=== PATIENT | male | born 1950 | race Caucasian/White ===

== ENCOUNTER 2021-11-14 01:24 | Day surgery (SDC) | payer MEDICARE, OTHER, SELFPAY ==
[2021-10-31 14:54] VITALS: BMI 25.7
[2021-11-14 12:43] VITALS: BP 130/92; PULSE 61; RESP 20; TEMP 36.8; O2SAT 100
[2021-11-14] MEDS: LACTATED RINGERS 1,000 ML 150 ML IV CONT (12:53)
--- NOTE | 2021-11-14 13:03 | P.PNAN_ITS ---
Anes - Initial Pre Proc Eval Procedure: Operation Date: 11/14/21 13:30 Proposed Procedures p Screening Colonoscopy - Og Grider MD Date/Time: 11/14/21 13:03 Surgeon: Og Grider MD Pre Op Diagnosis: neoplasm screening Patient Data Age: 70 Gender: M Height: 1.83 m Weight: 84.7 kg Last Vital Signs Temp 98.2 F 11/14/21 12:43 Pulse 61 11/14/21 12:43 Resp 20 11/14/21 12:43 BP 130/92 H 11/14/21 12:43 Pulse Ox 100 11/14/21 12:43 Allergies Allergy/AdvReac Type Severity Reaction Status Date / Time erythromycin base Allergy Intermediate Rash Verified 11/14/21 12:37 Penicillins Allergy Intermediate Hives Verified 11/14/21 12:37 Home Medications Medication Instructions Recorded Confirmed Type tamsulosin 0.4 mg capsule 1 cap PO HS 09/12/21 10/31/21 History losartan 25 mg PO HS 10/31/21 10/31/21 History psyllium husk [Metamucil] 0.52 g PO DAILY 10/31/21 10/31/21 History Patient hx anesthesia problems: none Family hx anesthesia problems: none Results Review: All pre-operative results and documents have been reviewed as part of the pre-operative evaluation. [facility] Past Medical History Medical History BPH (benign prostatic hyperplasia) Hypertension Family History Family History Father Family history of chronic obstructive pulmonary disease Family history of emphysema Family history of type 2 diabetes mellitus Family history of heart disease in male family member before age 55 Family history of lung cancer Mother Family history of thyroid disease Other Cerebrovascular accident Social History Social History Smoking status: Never smoker Second hand tobacco smoke exposure: No Alcohol intake: current Drinks per week: 5 Alcohol use details: DRINKS Substance use: never Substance use type: does not use Living arrangements: with family Spiritual care concerns: No Anes - Eval Final PreProcedure Day of Procedure 11/14/21 13:03 Patient weight: normal Heart: regular rate and rhythm Lungs: clear to auscultation Airway: Mallampati scale class II Neurological: alert and oriented Last oral intake: >/= 8 hours ASA classification: II Emergent: no Anesthetic plan: proceed Anesthesia type and monitoring: general GIVS and standard monitoring Results Review: All pre-operative results and documents have been reviewed as part of the pre-operative evaluation. Informed Consent: The patient's anesthetic plan and its attendant risks and benefits were discussed with the patient/family/POA. Questions were solicited and answers provided to the satisfaction of the patient/family/POA.
--- NOTE | 2021-11-14 13:09 | PM.HPGS ---
History of Present Illness History of Present Illness Consent: Risks, benefits, and alternatives have been discussed and questions answered. Patient agrees to proceed with procedure. Chief complaint: neoplasm screening Narrative: Jeff Westbrook is a 70 year old male with last colonoscopy more than 12 years ago Review of Systems Constitutional: Constitutional: Denies headache(s) and Denies weakness Eyes: Eyes: Denies blurry vision ENT: Reports Normal hearing present, Denies headache(s) and Denies neck pain Cardiovascular: Cardiovascular: Denies chest pain and Denies dyspnea Respiratory: Respiratory: Denies dyspnea Gastrointestinal: Gastrointestinal: Reports no additional gastrointestinal complaints Genitourinary: Genitourinary: Denies dysuria Musculoskeletal: Musculoskeletal: Denies neck pain Integumentary/Breasts: Skin/Breast: Denies dry skin Neurologic: Reports Normal hearing present, Denies headache(s) and Denies weakness Psychiatric: Psychiatric: Denies anxiety Endocrine: Endocrine: Denies change in body appearance Hematologic/Lymphatic: Hematologic/Lymphatic: Denies easy bleeding Allergic/Immunologic: Allergic/Immunologic: Denies urticaria PMF Past Medical History Medical History (Updated 11/14/21 @ 13:10 by Og Grider MD) BPH (benign prostatic hyperplasia) Colon cancer screening Hypertension Family History Family History Father Family history of chronic obstructive pulmonary disease Family history of emphysema Family history of type 2 diabetes mellitus Family history of heart disease in male family member before age 55 Family history of lung cancer Mother Family history of thyroid disease Other Cerebrovascular accident Social History Social History Smoking status: Never smoker Second hand tobacco smoke exposure: No Alcohol intake: current Drinks per week: 5 Alcohol use details: DRINKS Substance use: never Substance use type: does not use Living arrangements: with family Spiritual care concerns: No Meds Home Medications and Allergies Home Medications Medication Instructions Recorded Confirmed Type tamsulosin 0.4 mg capsule 1 cap PO HS 09/12/21 10/31/21 History losartan 25 mg PO HS 10/31/21 10/31/21 History psyllium husk [Metamucil] 0.52 g PO DAILY 10/31/21 10/31/21 History Allergies Allergy/AdvReac Type Severity Reaction Status Date / Time erythromycin base Allergy Intermediate Rash Verified 11/14/21 12:37 Penicillins Allergy Intermediate Hives Verified 11/14/21 12:37 Vital Signs Vital Signs - 24 hr 11/14/21 12:43 Temperature 98.2 F Pulse Rate 61 Respiratory Rate 20 Blood Pressure 130/92 H Pulse Oximetry 100 Exam Const: General: comfortable and no acute distress HENMT: General nose exam: Normal nares present Eyes: General: appearance normal, both eyes and all related structures Neck: Neck: no JVD Resp: Auscultation: clear to auscultation bilaterally Cardio: Rate: regular rate Rhythm: regular rhythm GI: Inspection: non-distended GI Palp: Yes Soft to palpation Skin: General skin exam: normal color Neuro: General: gait normal Speech: normal speech Extrem: General: normal to inspection Psych: Mental Status: mental status grossly normal Assessment and Plan Assessment and plan (1) Colon cancer screening: Code(s): Z12.11 - Encounter for screening for malignant neoplasm of colon Status: Acute Assessment and Plan: colonoscopy
[2021-11-14 13:30] VITALS: BP 108/72; PULSE 61; RESP 13; O2SAT 98
[2021-11-14 13:40] VITALS: BP 112/76; PULSE 55; RESP 14; O2SAT 98
[2021-11-14 13:50] VITALS: BP 114/79; PULSE 53; RESP 16; O2SAT 99
--- NOTE | 2021-11-14 15:11 | SUR.PHASEII ---
PT'S delivery driver assistant was unable to get him until after her class 30 min away
== END 2021-11-14 15:08 | disposition home or self-care (01) ==
PROVIDERS: PCP Nurse Practitioner; Visit Provider Internal Medicine Gastroenterology
PROC: 0DJD8ZZ Inspection of Lower Intestinal Tract, Via Natural or Artificial Opening Endoscopic (ICD-10-PCS; CPT 45378; principal; 2021-11-14 13:30)
DX: Z12.11 Encounter for screening for malignant neoplasm of colon (principal); K64.8 Other hemorrhoids; N40.0 Benign prostatic hyperplasia without lower urinary tract symptoms; I10 Essential (primary) hypertension
CPT/HCPCS: G0121; J2704; J7120

== ENCOUNTER 2021-12-13 11:36 | Outpatient (CLI) | payer MEDICARE, OTHER, SELFPAY ==
[2021-12-13 12:50] LABS: Basophils Absolute Auto 0.1 K/mm3 (0.0-0.1); Basophils Percent Auto 0.5 % (0.2-1.2); Eosinophils Absolute Auto 0.5 K/mm3 (0-0.3); Hematocrit 45.2 % (42.0-52.0); Hemoglobin 14.9 g/dL (14.0-18.0); Immature Granulocyte Absolute 0.04 K/mm3 (0.00-0.031); Immature Granulocyte Percent A 0.3 % (0-0.5); Lymphocytes Absolute Auto 4.26 K/mm3 (0.9-3.2); Lymphocytes Percent Auto 35.7 % (18.3-44.2); Mean Corpuscular Hemoglobin 31.2 pg (26-34); Mean Corpuscular Volume 94.6 fl (80-100); Mean Platelet Volume 11.9 fl (7.4-10.4); Monocytes Absolute Auto 0.9 K/mm3 (0.1-0.6); Monocytes Percent Auto 7.1 % (2.6-8.5); Neutrophils Absolute Auto 6.3 K/mm3 (1.3-6.7); Neutrophils Percent Auto 52.4 % (45.5-73.1); Platelet Count Result 527 k/mm3 (150-375); Red Blood Count 4.78 M/mm3 (4.6-6.20); Red Cell Distribution Width 14.6 % (11.5-14.5); White Blood Count 11.9 K/mm3 (4.5-10.0)
[2021-12-13 14:40] LABS: Erythrocyte Sedimentation Rate 1 mm/hr (0-20)
[2021-12-13 16:44] LABS: Alanine Aminotransferase 27 U/L (6-50); Albumin Level 4.5 g/dL (3.5-5.1); Alkaline Phosphatase 56 U/L (38-126); Anion Gap 6 mmol/L (8-16); Aspartate Amino Transferase 46 U/L (17-59); Bilirubin,Total 0.4 mg/dL (0.2-1.3); Blood Urea Nitrogen 18 mg/dL (9-20); CRP < 0.5 mg/dL (<1.0); Calcium 9.2 mg/dL (8.4-10.2); Carbon Dioxide 25 mmol/L (22-30); Chloride 106 mmol/L (98-107); Estimated Glomerular Filt Rate > 60; Glucose 83 mg/dL (65-110); Potassium 4.2 mmol/L (3.4-5.0); Sodium 137 mmol/L (137-145)
[2021-12-15 15:53] LABS: BCR/abl P190 Not Detected; BCR/abl P210 Not Detected; BCR/abl Prior Result Not Given
[2021-12-15 15:54] LABS: BCR/abl P190 Chg YES; BCR/abl P210 Chg YES
[2021-12-17 14:20] LABS: Clinical Indication Not Given; Exon 14; Gene JAK2; JAK2 V617F Mutation Detected (Not Detected); Mutation Frequency 16.4; Mutation Type missense; Specimen Source Blood
== END 2021-12-13 11:37 | disposition home or self-care (01) ==
PROVIDERS: PCP Nurse Practitioner; Visit Provider Internal Medicine Hematology & Oncology
DX: D47.3 Essential (hemorrhagic) thrombocythemia (principal); D72.829 Elevated white blood cell count, unspecified
CPT/HCPCS: 36415; 80053; 81206; 81207; 81270; 85025; 85652; 86140

== ENCOUNTER 2022-01-09 21:52 | Emergency (ER) | payer MEDICARE, OTHER, SELFPAY ==
[2022-01-09 22:50] VITALS: BP 153/98; PULSE 61; RESP 18; TEMP 36.6; O2SAT 100
--- NOTE | 2022-01-10 01:01 | ED.WOUNDLAC ---
HPI - Wound/Laceration General Chief Complaint: Wound/Laceration Stated Complaint: lac to left index finger Time Seen by Provider: 01/10/22 00:51 History of Present Illness HPI narrative: 71-year-old male presents the emergency room for evaluation of left index finger laceration. Patient states he was trying to open up a plastic bottle with a kitchen knife when the knife slipped cutting his finger. Tetanus status is up-to-date. Related Data Home Medications Medication Instructions Recorded Confirmed tamsulosin 0.4 mg capsule 1 cap PO HS 09/12/21 10/31/21 psyllium husk 0.52 gram capsule 0.52 g PO DAILY 10/31/21 10/31/21 (Metamucil) Allergies Allergy/AdvReac Type Severity Reaction Status Date / Time erythromycin base Allergy Intermediate Rash Verified 01/09/22 22:53 Penicillins Allergy Intermediate Hives Verified 01/09/22 22:53 Review of Systems Review of Systems: CONSTITUTIONAL: Denies fever, chills, or sweats. EYES: Denies visual changes, redness, or discharge. ENT: Denies rhinorrhea, congestion, sore throat, or otalgia. CARDIOVASCULAR: Denies chest pain, palpitations, or edema. RESPIRATORY: Denies cough or dyspnea. GASTROINTESTINAL: Denies abdominal pain, nausea, vomiting, or diarrhea. GENITOURINARY: Denies dysuria or hematuria. SKIN: Reports laceration left finger MUSCULOSKELETAL: Denies back pain, joint pain, or myalgia. NEUROLOGIC: Denies headache, numbness, dizziness, or weakness. PSYCHIATRIC: Denies anxiety or depression. [facility] Past Medical History Medical History BPH (benign prostatic hyperplasia) Colon cancer screening Hypertension Family History Family History Father Family history of chronic obstructive pulmonary disease Family history of emphysema Family history of type 2 diabetes mellitus Family history of heart disease in male family member before age 55 Family history of lung cancer Mother Family history of thyroid disease Other Cerebrovascular accident Social History Social History Smoking status: Never smoker Second hand tobacco smoke exposure: No Alcohol intake: current Drinks per week: 5 Alcohol use details: DRINKS Substance use: never Substance use type: does not use Spiritual care concerns: No Exam Narrative: GENERAL: Well-appearing, well-nourished, no physical limitations, and in no acute distress. HEAD: Normocephalic, atraumatic. EYES: Conjunctivae normal, PERRLA and EOMI. CHEST: Clear to auscultation. No respiratory distress. No wheezes rales or rhonchi. No tenderness. HEART: Regular rate and rhythm. No murmur heard. Normal peripheral pulses. EXTREMITIES: Normal range of motion. No edema. No clubbing or cyanosis SKIN: Warm, dry, no rash. Left index finger: 2 cm linear laceration to the finger pad, neurovascular is intact distally NEURO: No focal deficits. Alert and oriented x3. MAEW. CN's II-XI intact bilaterally, normal gait PSYCH: Cooperative. Normal mood and affect. Course Vital Signs Vital signs: Vital Signs Temperature 36.6 C 01/09/22 22:50 Pulse Rate 61 01/09/22 22:50 Respiratory Rate 18 01/09/22 22:50 Blood Pressure 153/98 H 01/09/22 22:50 Pulse Oximetry 100 01/09/22 22:50 Temperature 36.6 C 01/09/22 22:50 Pulse Rate 61 01/09/22 22:50 Respiratory Rate 18 01/09/22 22:50 Blood Pressure 153/98 H 01/09/22 22:50 Pulse Oximetry 100 01/09/22 22:50 Procedures Laceration Laceration 1: Date: 01/10/22 Time: 01:42 Site: hand Side (If applicable): left Size (cm): 2 Description: linear Depth: simple, single layer Local Anesthetic: lidocaine 1% Amount of anesthesia used (mL): 3 Pre-repair: irrigated ====== Skin Level ====== Skin layer closed with: nylon Size
[2022-01-10 02:19] VITALS: BP 126/74; PULSE 67; RESP 16; O2SAT 98
== END 2022-01-10 02:20 | disposition home or self-care (01) ==
LOC: ANHED 01-10 01:44
PROVIDERS: Emergency Provider Nurse Practitioner Family; PCP Nurse Practitioner
DX: S61.211A Laceration without foreign body of left index finger without damage to nail, initial encounter (principal); W26.0XXA Contact with knife, initial encounter; N40.0 Benign prostatic hyperplasia without lower urinary tract symptoms; I10 Essential (primary) hypertension
CPT/HCPCS: 12001; 99284

== ENCOUNTER 2023-01-30 15:23 | Outpatient (CLI) | payer MEDICARE, SELFPAY ==
--- NOTE | ~2023-01-30 | US_ITS ---
EXAMINATION: US venous doppler LE RT DATE: 01/30/2023 15:57 INDICATION: M79.89 - Other specified soft tissue disorders . TECHNIQUE: Grayscale images without and with compression and Doppler images of the right lower extrem ity veins were obtained. COMPARISON: None FINDINGS: Noncompressible and partially compressible areas within the right gastrocnemius vein. The right commo n femoral vein, profunda (deep) femoral vein, femoral vein, popliteal vein, peroneal vein, posterior tibial veins, and greater saphenous vein are patent. IMPRESSION: 1. Acute/subacute deep venous thrombosis involving the right gastrocnemius vein. 2. Otherwise patent right lower extremity veins. Reviewed, dictated and finalized at location K. IMPRESSION: 1. Acute/subacute deep venous thrombosis involving the right gastrocnemius vei n. 2. Otherwise patent right lower extremity veins.
== END 2023-01-30 15:24 | disposition home or self-care (01) ==
PROVIDERS: PCP Family Medicine; Visit Provider Nurse Practitioner Family
DX: I82.461 Acute embolism and thrombosis of right calf muscular vein (principal)
CPT/HCPCS: 93971

== ENCOUNTER 2023-04-19 15:44 | Outpatient (CLI) | payer MEDICARE, SELFPAY ==
--- NOTE | ~2023-04-19 | MR_ITS ---
EXAMINATION: MR brain/brain stem wo/w con DATE: 04/19/2023 16:39 INDICATION: Transient cerebral ischemic attack, unspecified. TECHNIQUE: Magnetic resonance imaging (MRI) of the brain and brainstem was performed without and with 16 mL MultiHance intravenous contrast. COMPARISON: None. FINDINGS: There are a few areas of nonspecific increased T2-weighted signal intensity in the cerebral white matter, which is within normal limits for the patient's age. There is no intracranial hemorrha ge, acute infarction, or abnormal intracranial mass lesion. The ventricles are normal in size. There are likely changes of right ocular lens replacement surgery. The paranasal sinuses are clear. The mas toid air cells are normal. IMPRESSION: 1. Normal brain. Reviewed, dictated and finalized at location E. IMPRESSION: 1. Normal brain.
== END 2023-04-19 15:45 | disposition home or self-care (01) ==
PROVIDERS: PCP Family Medicine; Visit Provider Family Medicine
DX: G45.9 Transient cerebral ischemic attack, unspecified (principal); R26.81 Unsteadiness on feet
CPT/HCPCS: 70553; A9577

== ENCOUNTER 2023-04-30 08:36 | Outpatient (CLI) | payer MEDICARE, SELFPAY ==
--- NOTE | 2023-04-30 08:50 | ECHO_ITS ---
Patient Info Name: Jeff Westbrook Age: 72 years : 1950 Gender: Male Ht: 72 in Wt: 185 lbs BSA: 2.07 m2 HR: 73 bpm BP: 157 / 93 mmHg Technical Quality: Fair Exam Date: 04/30/2023 8:55 AM Exam Location: [facility] Patient Status: Outpatient Admit Date: 04/30/2023 Staff Ordering Physician: Manoj Perez MD Motion Picture Camera Operator: Whit Mcclain RDCS Attending Provider: Manoj Perez MD Exam Type: CA echo doppler color flow Study Info Indications - TIA Complete two-dimensional, color flow and Doppler transthoracic echocardiogram is performed. Summary 1. Complete two-dimensional, color flow and Doppler transthoracic echocardiogram is performed. 2. Left ventricular chamber dimension is normal. 3. Left ventricular systolic function is normal, estimated at 65-70%. 4. The left ventricular diastolic function is grade I diastolic dysfunction. 5. E/e' 8 is minimally elevated. 6. There is trace mitral valve regurgitation. 7. No pulmonary hypertension, estimated pulmonary arterial systolic pressure is 30 mmHg. Left Ventricle E/e' 8 is minimally elevated. Left ventricular chamber dimension is normal. Left ventricular systolic function is normal, estimated at 65-70%. The left ventricular diastolic function is grade I diastolic dysfunction. Right Ventricle Right ventricular chamber dimension is normal. Right ventricular systolic function is normal. Left Atria Left atrial chamber dimension is normal. Right Atria Right atrial chamber dimension is normal. Aortic Valve The aortic valve is trileaflet. There is no aortic valve stenosis. There is no aortic valve regurgitation. Pulmonic Valve There is no pulmonic regurgitation. Mitral Valve There is no mitral valve stenosis. There is trace mitral valve regurgitation. Tricuspid Valve There is no tricuspid valve regurgitation. No pulmonary hypertension, estimated pulmonary arterial systolic pressure is 30 mmHg. Pericardium/Pleural There is no pericardial effusion. Inferior Vena Cava Normal inferior vena cava with >50% collapse upon inspiration consistent with normal right atrial pressure, 5 mmHg. Aorta The aortic root size at the sinus of Valsalva is normal. Left Ventricular Outflow Tract Name Value Normal LVOT 2D LVOT Diameter 2.1 cm LVOT Doppler LVOT Peak Gradient 6 mmHg LVOT Mean Gradient 3 mmHg LVOT VTI 22 cm LVOT VTI/AV VTI Ratio 0.9 LVOT Stroke Volume 76 ml LVOT CO 15.0 l/min LVOT CI 7.2 l/min/m2 Pulmonic Valve Name Value Normal RVOT Doppler RVOT Peak Gradient 1 mmHg PV Doppler PV Peak Gradient 3 mmHg Mitral Valve
== END 2023-04-30 08:37 | disposition home or self-care (01) ==
PROVIDERS: PCP Family Medicine; Visit Provider Family Medicine
DX: G45.9 Transient cerebral ischemic attack, unspecified (principal); I10 Essential (primary) hypertension; I34.0 Nonrheumatic mitral (valve) insufficiency; R93.1 Abnormal findings on diagnostic imaging of heart and coronary circulation
CPT/HCPCS: 93306

== ENCOUNTER 2023-06-12 09:31 | Outpatient (CLI) | payer MEDICARE, SELFPAY | END 2023-06-12 09:32 | disposition home or self-care (01) | PROVIDERS: PCP Family Medicine; Visit Provider Surgery | DX: Z01.818 Encounter for other preprocedural examination (principal); K40.90 Unilateral inguinal hernia, without obstruction or gangrene, not specified as recurrent | CPT/HCPCS: 36415; 86850; 86900; 86901 ==

== ENCOUNTER 2023-06-12 10:43 | Outpatient (CLI) | payer MEDICARE, SELFPAY ==
--- NOTE | ~2023-06-12 | US_ITS ---
EXAMINATION:US venous doppler LE RT INDICATION:DVT. TECHNIQUE: Multiple grayscale, color flow and Doppler images of the right lower extremity deep venous systems were obtained and reviewed. COMPARISON:Ultrasound dated 01/30/2023 FINDINGS: The common femoral, superficial femoral and popliteal veins demonstrate normal respiratory variation, augmentation and compressibility. Color flow is also seen within the posterior tibial, pe roneal, greater saphenous and profunda veins. There is chronic thrombosis of the gastrocnemius vein. 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 Reviewed, dictated and finalized at location L. T IRONER SUPERVISOR
== END 2023-06-12 10:44 | disposition home or self-care (01) ==
PROVIDERS: PCP Family Medicine; Visit Provider Internal Medicine Hematology & Oncology
DX: I82.561 Chronic embolism and thrombosis of right calf muscular vein (principal)
CPT/HCPCS: 93971

== ENCOUNTER 2023-06-14 01:15 | Day surgery (SDC) | payer MEDICARE, SELFPAY ==
[2023-06-11 12:40] VITALS: BMI 25.1
--- NOTE | 2023-06-11 12:46 | PC.NURSE ---
Report to the Outpatient Waiting Room, entrance under the green pavilion located off [facility], at time _1130_ on date _[id number]_. Planned Procedure Time: _130pm_. Time changes happen often and if your time is changed the preop area will call you the afternoon before. - You and your visitor will be asked to self-screen and do not enter if you have any COVID symptoms. - A mask is optional within the hospital at this time. Patients may have clear liquids (water, carbonated beverages, clear teas, apple juice) until 3 hours prior to surgery with a maximum of 20 ounces. - No food from midnight until time of surgery Take the following medications with a SIP of water the morning of surgery: ___None DO NOT STOP ANY OF YOUR OTHER PRESCRIPTION MEDICATIONS PRIOR TO SURGERY ?EXCEPT THE FOLLOWING Medications to discontinue per physician Patient says office instructed him to stop Eliquis 3 days before surgery. Date to take last fhki___[id number] Please no make-up, nail chinese, hairspray, perfume, deodorant, or body powder the day of surgery. No jewelry (including any body piercings) or valuables the day of surgery, leave them at home. Please take a shower or bath the night before, or the morning of, surgery with an antibacterial soap. Wear comfortable, loose fitting clothing. - Jewelry must be removed prior to entering the operating room. Rings and piercings that are not removed may be cut off. - The hospital will not accept responsibility for valuables. - Please leave all valuables, including medications, at home the day of surgery. If you are going home after surgery, a licensed superintendent drivers must drive you home. - NO public transportation without another adult if you receive anesthesia. - We recommend that an adult stay with you for 24 hours following discharge. - We also recommend that you do not drive, make important decision, drink alcoholic beverages, or take any drugs that were not prescribed by your health care provider for at least 24 hours after your discharge time. Follow any additional instructions given to you from your surgeon. If you or anyone in your household have experienced Covid symptoms in the past week, please notify your surgeon or the nurse liaison at the phone number below for possible testing. Telephone instructions given to __Bob___and asked if any additional questions and then verbalized understanding. Patient advised to call surgeon office or pre surgery nurse liaison [phone] if any additional questions.
[2023-06-14] VITALS (9 sets, daily range): BP systolic 121–139; BP diastolic 70–80; PULSE 59–89; RESP 12–20; TEMP 36.6–37.2; O2SAT 98–100
--- NOTE | 2023-06-14 11:02 | WPDANESEPPF ---
Anes - Initial Pre Proc Eval Procedure: Operation Date: 06/14/23 12:00 Proposed Procedures p Robotic Assisted Laparoscopic Left Inguinal Hernia Repair with Mesh - Tanja Carpenter MD Date/Time: 06/14/23 11:02 Surgeon: Tanja Carpenter MD Pre Op Diagnosis: Left Inguinal Hernia Patient Data Age: 72 Gender: M Height: 1.83 m Weight: 84 kg Allergies Allergy/AdvReac Type Severity Reaction Status Date / Time erythromycin base Allergy Intermediate Rash Verified 06/14/23 10:52 Penicillins Allergy Intermediate Hives Verified 06/14/23 10:52 Home Medications Medication Instructions Recorded Confirmed Type tamsulosin 0.4 mg capsule 1 cap PO HS 09/12/21 06/14/23 History psyllium husk 0.52 gram capsule 0.52 g PO DAILY 10/31/21 06/14/23 History (Metamucil) finasteride 5 mg tablet 5 mg PO DAILY 09/13/22 06/14/23 History hydroxyurea 500 mg capsule 500 mg PO DAILY 09/13/22 06/14/23 History apixaban 5 mg tablet 5 mg PO BID #180 tabs 04/05/23 06/14/23 Rx aspirin 81 mg tablet,delayed 81 mg PO DAILY 04/05/23 06/14/23 History release (Adult Low Dose Aspirin) atorvastatin 10 mg tablet 10 mg PO QHS #90 tabs 04/05/23 06/14/23 Rx losartan 25 mg tablet 25 mg PO DAILY #90 tabs 04/09/23 06/14/23 Rx Patient hx anesthesia problems: none Family hx anesthesia problems: none Results Review: All pre-operative results and documents have been reviewed as part of the pre-operative evaluation. [facility] Past Medical History Medical History Abnormal red blood cells BPH (benign prostatic hyperplasia) High cholesterol History of gastric ulcer Hypertension Right leg DVT (~01/2023) TIA (transient ischemic attack) (~04/02/23) expressive aphasia Surgical History Surgical History H/O excision of mass benign tumor excised from left mandible History of cataract surgery History of colonoscopy History of rectal surgery Family History Family History Father Family history of chronic obstructive pulmonary disease Family history of emphysema Family history of type 2 diabetes mellitus Family history of heart disease in male family member before age 55 Family history of lung cancer Mother Family history of thyroid disease Other Cerebrovascular accident Social History Social History Smoking status: Never smoker Second hand tobacco smoke exposure: No Alcohol intake: current Drinks per week: 5 Alcohol use details: DRINKS Substance use: never Substance use type: does not use Lack of Transportation: No Lack of Food: Never True Current Housing: I Have Housing Concerned About Future Housing: No Difficulty Paying Gas/Electric Bills: No Difficulty Paying for Meds: No Currently Unemployed: No Education: Master's Degree or Higher Difficulty w/ Childcare or Family Care: No Living arrangements: with family Occupation/Education: retired Gender identity (if verbalized by the patient): Male Spiritual care concerns: No Anes - Eval Final PreProcedure Day of Procedure 06/14/23 11:02 Patient weight: normal Heart: regular rate and rhythm Lungs: clear to auscultation Airway: Mallampati scale class II Neurological: alert and oriented Last oral intake: >/= 8 hours ASA classification: III Emergent: no Anesthetic plan: proceed Anesthesia type and monitoring: general ETT and standard monitoring Results Review: All pre-operative results and documents have been reviewed as part of the pre-operative evaluation. Informed Consent: The patient's anesthetic plan and its attendant risks and benefits were discussed with the patient/family/POA. Questions were solicited and answers provided to the satisfaction of the patient/family/POA.
[2023-06-14] MEDS: ACETAMINOPHEN 500 MG TABLET 1000 MG PO (11:04)
[2023-06-14] MEDS: KETOROLAC 15 MG/ML VIAL (*BKC) IV PUSH (11:12)
--- NOTE | 2023-06-14 11:48 | PM.IMHP ---
H&P: HPI History of Present Illness Date/Time: 06/14/23 11:48 Chief Complaint: left inguinal hernia Narrative: Jeff is a 72 y/o male who presents to the office at the request of Dr. Perez for evaluation of a left inguinal hernia. Patient states about 2 months ago, he noticed a bulge in his left groin. He state the bulge is reducible and causes some sharp pain with certain movements. He denies any issues with urination or bowel habits. Review of Systems Review of Systems: All systems reviewed & are unremarkable except as noted in HPI and below PMFSH Past Medical History Medical History Abnormal red blood cells BPH (benign prostatic hyperplasia) High cholesterol History of gastric ulcer Hypertension Right leg DVT (~01/2023) TIA (transient ischemic attack) (~04/02/23) expressive aphasia Surgical History Surgical History H/O excision of mass benign tumor excised from left mandible History of cataract surgery History of colonoscopy History of rectal surgery Family History Family History Father Family history of chronic obstructive pulmonary disease Family history of emphysema Family history of type 2 diabetes mellitus Family history of heart disease in male family member before age 55 Family history of lung cancer Mother Family history of thyroid disease Other Cerebrovascular accident Social History Social History Smoking status: Never smoker Second hand tobacco smoke exposure: No Alcohol intake: current Drinks per week: 5 Alcohol use details: DRINKS Substance use: never Substance use type: does not use Lack of Transportation: No Lack of Food: Never True Current Housing: I Have Housing Concerned About Future Housing: No Difficulty Paying Gas/Electric Bills: No Difficulty Paying for Meds: No Currently Unemployed: No Education: Master's Degree or Higher Difficulty w/ Childcare or Family Care: No Living arrangements: with family Occupation/Education: retired Gender identity (if verbalized by the patient): Male Spiritual care concerns: No Meds Home Medications and Allergies Home Medications Medication Instructions Recorded Confirmed Type tamsulosin 0.4 mg capsule 1 cap PO HS 09/12/21 06/14/23 History psyllium husk 0.52 gram capsule 0.52 g PO DAILY 10/31/21 06/14/23 History (Metamucil) finasteride 5 mg tablet 5 mg PO DAILY 09/13/22 06/14/23 History hydroxyurea 500 mg capsule 500 mg PO DAILY 09/13/22 06/14/23 History apixaban 5 mg tablet 5 mg PO BID #180 tabs 04/05/23 06/14/23 Rx aspirin 81 mg tablet,delayed 81 mg PO DAILY 04/05/23 06/14/23 History release (Adult Low Dose Aspirin) atorvastatin 10 mg tablet 10 mg PO QHS #90 tabs 04/05/23 06/14/23 Rx losartan 25 mg tablet 25 mg PO DAILY #90 tabs 04/09/23 06/14/23 Rx Allergies Allergy/AdvReac Type Severity Reaction Status Date / Time erythromycin base Allergy Intermediate Rash Verified 06/14/23 10:52 Penicillins Allergy Intermediate Hives Verified 06/14/23 10:52 Exam Const: General: cooperative, comfortable and no acute distress Resp: Auscultation: clear to auscultation bilaterally Cardio: Rate: regular rate Rhythm: regular rhythm GI: Inspection: normal to inspection and visible herniation GI Palp: Yes abdominal tenderness, Yes Soft to palpation, Yes Tenderness to palpation present (GI), No Guarding due to palpation present (GI), No Rigid due to palpation and Yes Hernia present Assessment and Plan Assessment and plan (1) Left inguinal hernia: Code(s): K40.90 - Unilateral inguinal hernia, without obstruction or gangrene, not specified as recurrent Status: Acute Assessment and Plan: will setup for robotic assisted repair c mesh
--- NOTE | 2023-06-14 11:50 | WPDHPUPDATE1 ---
History and Physical Update Update Date/Time: 06/14/23 11:50 History and Physical has been reviewed, including an updated exam of the patient. There are NO changes in the patient's condition. Risks, benefits, and alternatives have been discussed and questions answered. Patient agrees to proceed with procedure.
[2023-06-14] MEDS: ceFAZolin 2 GM/D5W 50 ML 2 GM/50 ML BAG IVPB (11:58)
[2023-06-14] MEDS: BUPIVACAINE/EPINEPHRINE 0.5% 50 ML VIAL 30 ML INFILTRATE (12:37)
[2023-06-14] MEDS: LACTATED RINGERS 1,000 ML 30 ML IV CONT ×2 (13:55)
--- NOTE | 2023-06-14 14:19 | WPDURCON ---
Assessment and Plan Assessment and plan (1) Urinary retention: Code(s): R33.9 - Retention of urine, unspecified Status: Acute Assessment and Plan: Chronic urinary retention due to hypotonic bladder Urology Consult Note HPI Date Seen: 06/14/23 Requesting Physician: Tanja Carpenter MD Primary Care Provider: Amarilys Perez MD Consult Narrative Narrative: Jeff Westbrook is a 72 year old male well known to me with chronic, asymptomatic urinary retention/ incomplete bladder emptying. I was called in the operating room by Dr. Carpenter during the course of a robotic left inguinal herniorrhaphy were was noted that his bladder was distended and not draining. The catheter had been placed with scant urine output. Flexible cystoscopy was performed which revealed urethral trauma with a false passage. I was able to intubate the bladder (confirmed by direct visualization with robotic laparoscopy). The bladder was then drained with an 18 F Councill tip catheter. He had over 1000 cc of urine in his bladder undrained. Review of Systems Review of Systems: ROS unobtainable: Yes unobtainable due to mental status PMFSH Past Medical History Medical History Abnormal red blood cells BPH (benign prostatic hyperplasia) High cholesterol History of gastric ulcer Hypertension Right leg DVT (~01/2023) TIA (transient ischemic attack) (~04/02/23) expressive aphasia Surgical History Surgical History H/O excision of mass benign tumor excised from left mandible History of cataract surgery History of colonoscopy History of rectal surgery Family History Family History Father Family history of chronic obstructive pulmonary disease Family history of emphysema Family history of type 2 diabetes mellitus Family history of heart disease in male family member before age 55 Family history of lung cancer Mother Family history of thyroid disease Other Cerebrovascular accident Social History Social History Smoking status: Never smoker Second hand tobacco smoke exposure: No Alcohol intake: current Drinks per week: 5 Alcohol use details: DRINKS Substance use: never Substance use type: does not use Lack of Transportation: No Lack of Food: Never True Current Housing: I Have Housing Concerned About Future Housing: No Difficulty Paying Gas/Electric Bills: No Difficulty Paying for Meds: No Currently Unemployed: No Education: Master's Degree or Higher Difficulty w/ Childcare or Family Care: No Living arrangements: with family Occupation/Education: retired Gender identity (if verbalized by the patient): Male Spiritual care concerns: No Meds Home Medications and Allergies Home Medications Medication Instructions Recorded Confirmed Type tamsulosin 0.4 mg capsule 1 cap PO HS 09/12/21 06/14/23 History psyllium husk 0.52 gram capsule 0.52 g PO DAILY 10/31/21 06/14/23 History (Metamucil) finasteride 5 mg tablet 5 mg PO DAILY 09/13/22 06/14/23 History hydroxyurea 500 mg capsule 500 mg PO DAILY 09/13/22 06/14/23 History apixaban 5 mg tablet 5 mg PO BID #180 tabs 04/05/23 06/14/23 Rx aspirin 81 mg tablet,delayed 81 mg PO DAILY 04/05/23 06/14/23 History release (Adult Low Dose Aspirin) atorvastatin 10 mg tablet 10 mg PO QHS #90 tabs 04/05/23 06/14/23 Rx losartan 25 mg tablet 25 mg PO DAILY #90 tabs 04/09/23 06/14/23 Rx docusate sodium 100 mg capsule 100 mg PO BID #30 caps 06/14/23 Rx (Colace) hydrocodone 5 mg-acetaminophen 325 1 tablet PO Q6H PRN pain #30 tabs 06/14/23 Rx mg tablet Allergies Allergy/AdvReac Type Severity Reaction Status Date / Time erythromycin base Allergy Intermediate Rash Verified 06/14/23 10:52 Penicillins Allergy Intermedi
--- NOTE | 2023-06-14 14:21 | W.PM.PROC2 ---
Procedure Note - Detailed Date of Procedure 06/14/23 Pre-op Diagnosis Incarcerated Left Inguinal Hernia Post-op Diagnosis Same Procedure Performed robotic assisted repair of incarcerated left inguinal hernia with mesh Surgeon Tanja Carpenter MD Anesthesia General Indications 72-year-old male presenting to office with a large left incarcerated inguinal hernia Findings large indirect incarcerated left inguinal hernia with sigmoid colon, bladder, bladder massively distended requiring decompression by Urology Description of Procedure Patient was brought into the operating room and placed in the supine position. After adequate induction of general anesthesia, the patient was prepped and draped in normal sterile fashion. A time-out was then done to verify the patient's identity, as well as the procedure being performed. Prior to beginning, there was noted to be a large protruding mass in the right abdominal wall. I began by making a 8 mm incision in the supraumbilical region, a Veress needle was then placed into the peritoneal cavity. CO2 gas was then insufflated and after adequate pneumoperitoneum was achieved, the Veress needle was removed. I then placed an 8 mm trocar through this incision. I then placed the endoscope through this trocar site and under direct visualization placed 2 further 8 mm ports in the right and left mid abdomen. At this point, the large mass was noted to be very distended bladder. The [employer]inci robot was then docked to the 3 trocar sites. I then scrubbed out and went to the robotic console. Upon examining the pelvis, it was noted that the patient had a large left inguinal hernia incarcerated with sigmoid colon and bladder. Using very careful dissection with the cautery scissors I was able to reduce both the sigmoid colon and bladder out of this large hernia. The right side was examined and no hernia defect was noted. I began by making a preperitoneal flap approximately 6 cm superior to the defect. This flap was carried medially past the umbilical ligaments and laterally to the transversalis. It then began dissection of my medial compartment taking this down to the pubic tubercle. This was very difficult given the distended bladder. At this point, we tried to place a Dennis catheter for decompression. Despite attempts at decompression, the bladder continued to be very distended. Urology was then consulted intraoperatively for assistance. Dr. Parr proceeded with cystoscopy and catheter placement. Please see his full operative report for details of that procedure. I was then able to complete my medial dissection. I then began the lateral dissection taking this down to the transversalis fascia. Once these compartments were achieved, I began dissection around the cord structures. A large indirect hernia was noted at this point. Using careful dissection, was able to reduce indirect hernia sac off the cord structures. Once this was adequately done, I went ahead and placed a large piece of 3D Max mesh into the abdominal cavity. The mesh was carefully positioned, centering the center of the mesh over the indirect defect. Once this was done, was very satisfied with our repair. Using 3-0 Vicryl sutures, I tacked the mesh medially to William's ligament. Two lateral sutures were placed from the mesh to the transversalis fascia. I then closed the peritoneal flap with a running 2.0 V Lock suture. The abdomen was then desufflated, and all ports were removed. Once the abdomen was decompressed, it was noted that the right-sided mass was completely resolved. All incisions were then closed with the 4.0 monocryl suture. Dermabond was placed on each wound. The patient tolerated the procedure well, was extubated in the operating room postoperatively, and will now be transferred to the recovery room in stable condition. Please note incarceration of the bladder and sigmoid colon, as well as the massively distended bladder, this case was very di
--- NOTE | 2023-06-14 14:21 | W.PM.PROC2 ---
Procedure Note - Detailed Date of Procedure 06/14/23 Pre-op Diagnosis Left Inguinal Hernia, incomplete bladder emptying Post-op Diagnosis Same Procedure Performed Flexible cystoscopy with difficult catheterization Surgeon Sylvain Parr MD Anesthesia General Description of Procedure Patient to the operative suite undergoing robotic assisted left inguinal herniorrhaphy. Intraoperative findings are consistent with incomplete bladder emptying. At the bedside I did flexible cystoscopy. He had some trauma to the urethra with a false passage in the bulbous urethra. I was able to intubate identify the bladder and drain it with an 18 F catheter. Will plan to leave the catheter for 5 days. Estimated Blood Loss -10.0
== END 2023-06-14 16:10 | disposition home or self-care (01) ==
PROVIDERS: Urology; PCP Family Medicine; Visit Provider Surgery
PROC: 8E0Y4CZ Robotic Assisted Procedure of Lower Extremity, Percutaneous Endoscopic Approach (ICD-10-PCS; CPT 49650; principal; 2023-06-14 12:00)
PROC: (CPT 52310; 2023-06-14 12:00)
DX: K40.30 Unilateral inguinal hernia, with obstruction, without gangrene, not specified as recurrent (principal); R33.8 Other retention of urine; N36.5 Urethral false passage; I10 Essential (primary) hypertension; E78.00 Pure hypercholesterolemia, unspecified; N40.0 Benign prostatic hyperplasia without lower urinary tract symptoms; Z86.73 Personal history of transient ischemic attack (TIA), and cerebral infarction without residual deficits; Z86.718 Personal history of other venous thrombosis and embolism; Z79.01 Long term (current) use of anticoagulants; Z79.82 Long term (current) use of aspirin
CPT/HCPCS: 49650; 52000; S2900; 36415; 86850; 86900; 86901; 93971; A9270; C1769; C1781; J0690; J1100; J1170; J1885; J2405; J2704; J3010; J7120

== ENCOUNTER 2023-06-19 10:20 | Outpatient (CLI) | payer MEDICARE, SELFPAY ==
[2023-06-19 10:36] LABS: Basophils Absolute Auto 0.1 K/mm3 (0.0-0.1); Basophils Percent Auto 0.6 % (0.2-1.2); Eosinophils Absolute Auto 0.4 K/mm3 (0-0.3); Eosinophils Percent Auto 4.2 % (0-4.4); Hematocrit 44.7 % (42.0-52.0); Hemoglobin 14.7 g/dL (14.0-18.0); Immature Granulocyte Absolute 0.06 K/mm3 (0.00-0.031); Immature Granulocyte Percent A 0.6 % (0-0.5); Lymphocytes Absolute Auto 3.76 K/mm3 (0.9-3.2); Lymphocytes Percent Auto 35.9 % (18.3-44.2); Mean Corpuscular HGB Conc 32.9 g/dl (32-36); Mean Corpuscular Hemoglobin 33.2 pg (26-34); Mean Corpuscular Volume 100.9 fl (80-100); Mean Platelet Volume 11.1 fl (7.4-10.4); Monocytes Percent Auto 9.3 % (2.6-8.5); Neutrophils Absolute Auto 5.2 K/mm3 (1.3-6.7); Neutrophils Percent Auto 49.4 % (45.5-73.1); Platelet Count Result 413 k/mm3 (150-375); Red Blood Count 4.43 M/mm3 (4.6-6.20); Red Cell Distribution Width 13.6 % (11.5-14.5); White Blood Count 10.5 K/mm3 (4.5-10.0)
[2023-06-19 10:39] LABS: Blood Urea Nitrogen 16 mg/dL (8-26); Carbon Dioxide 29 mmol/L (22-30); Chloride 100 mmol/L (98-109); Estimated Glomerular Filt Rate 50; Glucose 100 mg/dL (70-105); Ionized Calcium (POC) 1.25 mmol/L (1.11-1.31); Potassium 4.9 mmol/L (3.5-4.9); Sodium 137 mmol/L (138-146)
== END 2023-06-19 10:21 | disposition home or self-care (01) ==
LOC: ANHLAB 10:22
PROVIDERS: PCP Family Medicine; Visit Provider Internal Medicine Hematology & Oncology
DX: D47.3 Essential (hemorrhagic) thrombocythemia (principal)
CPT/HCPCS: 36415; 80047; 85025

== ENCOUNTER 2023-09-10 08:51 | Outpatient (CLI) | payer MEDICARE, SELFPAY ==
--- NOTE | ~2023-09-10 | US_ITS ---
EXAMINATION: US venous doppler LE RT DATE: 09/10/2023 09:45 INDICATION: Acute deep vein thrombosis. TECHNIQUE: Grayscale ultrasound images without and with compression and Doppler ultrasound images of the right lower extremity veins were obtained. COMPARISON: Ultrasound 06/12/2023 FINDINGS: The visualized portions of right common femoral vein, profunda (deep) femoral vein, femoral vein, pop liteal vein, peroneal veins, posterior tibial veins, and greater saphenous vein outflow are patent. A gain seen is thrombus in right gastrocnemius vein. IMPRESSION: 1. 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 Reviewed, dictated and finalized at location A. MARKETING MANAGER
== END 2023-09-10 08:52 | disposition home or self-care (01) ==
PROVIDERS: PCP Family Medicine; Visit Provider Internal Medicine Hematology & Oncology
DX: I82.561 Chronic embolism and thrombosis of right calf muscular vein (principal)
CPT/HCPCS: 93971

== ENCOUNTER 2024-02-04 15:01 | Outpatient (CLI) | payer MEDICARE, SELFPAY ==
[2024-02-04 15:15] LABS: Basophils Absolute Auto 0.1 K/mm3 (0.0-0.1); Basophils Percent Auto 0.4 % (0.2-1.2); Eosinophils Absolute Auto 0.4 K/mm3 (0-0.3); Eosinophils Percent Auto 2.8 % (0-4.4); Hematocrit 43.2 % (42.0-52.0); Hemoglobin 14.4 g/dL (14.0-18.0); Immature Granulocyte Absolute 0.06 K/mm3 (0.00-0.031); Immature Granulocyte Percent A 0.5 % (0-0.5); Lymphocytes Absolute Auto 4.94 K/mm3 (0.9-3.2); Lymphocytes Percent Auto 38.7 % (18.3-44.2); Mean Corpuscular HGB Conc 33.3 g/dl (32-36); Mean Corpuscular Hemoglobin 33.3 pg (26-34); Mean Platelet Volume 11.3 fl (7.4-10.4); Monocytes Percent Auto 7.9 % (2.6-8.5); Neutrophils Absolute Auto 6.4 K/mm3 (1.3-6.7); Neutrophils Percent Auto 49.7 % (45.5-73.1); Platelet Count Result 442 k/mm3 (150-375); Red Blood Count 4.32 M/mm3 (4.6-6.20); Red Cell Distribution Width 14.1 % (11.5-14.5); White Blood Count 12.8 K/mm3 (4.5-10.0)
[2024-02-04 15:20] LABS: Blood Urea Nitrogen 25 mg/dL (8-26); Carbon Dioxide 24 mmol/L (22-30); Chloride 102 mmol/L (98-109); Estimated Glomerular Filt Rate 59; Glucose 107 mg/dL (70-105); Ionized Calcium (POC) 1.21 mmol/L (1.11-1.31); Potassium 4.3 mmol/L (3.5-4.9); Sodium 138 mmol/L (138-146)
== END 2024-02-04 15:02 | disposition home or self-care (01) ==
LOC: ANHLAB 15:03
PROVIDERS: PCP Family Medicine; Visit Provider Internal Medicine Hematology & Oncology
DX: D47.3 Essential (hemorrhagic) thrombocythemia (principal)
CPT/HCPCS: 36415; 80047; 85025

== ENCOUNTER 2024-06-06 09:09 | Outpatient (CLI) | payer MEDICARE, SELFPAY ==
[2024-06-06 09:22] LABS: Basophils Absolute Auto 0.1 K/mm3 (0.0-0.1); Basophils Percent Auto 0.7 % (0.2-1.2); Eosinophils Absolute Auto 0.5 K/mm3 (0-0.3); Eosinophils Percent Auto 3.5 % (0-4.4); Hemoglobin 14.8 g/dL (14.0-18.0); Immature Granulocyte Absolute 0.05 K/mm3 (0.00-0.031); Immature Granulocyte Percent A 0.4 % (0-0.5); Lymphocytes Absolute Auto 4.81 K/mm3 (0.9-3.2); Lymphocytes Percent Auto 34.9 % (18.3-44.2); Mean Corpuscular HGB Conc 32.9 g/dl (32-36); Mean Corpuscular Hemoglobin 33.3 pg (26-34); Mean Corpuscular Volume 101.1 fl (80-100); Mean Platelet Volume 11.1 fl (7.4-10.4); Monocytes Percent Auto 7.2 % (2.6-8.5); Neutrophils Absolute Auto 7.4 K/mm3 (1.3-6.7); Neutrophils Percent Auto 53.3 % (45.5-73.1); Platelet Count Result 447 k/mm3 (150-375); Red Blood Count 4.45 M/mm3 (4.6-6.20); White Blood Count 13.8 K/mm3 (4.5-10.0)
[2024-06-06 09:28] LABS: Blood Urea Nitrogen 21 mg/dL (8-26); Carbon Dioxide 26 mmol/L (22-30); Chloride 103 mmol/L (98-109); Estimated Glomerular Filt Rate 43; Glucose 74 mg/dL (70-105); Ionized Calcium (POC) 1.25 mmol/L (1.11-1.31); Potassium 4.3 mmol/L (3.5-4.9); Sodium 142 mmol/L (138-146)
== END 2024-06-06 09:10 | disposition home or self-care (01) ==
LOC: ANHLAB 09:11
PROVIDERS: PCP Family Medicine; Visit Provider Internal Medicine Hematology & Oncology
DX: D47.3 Essential (hemorrhagic) thrombocythemia (principal)
CPT/HCPCS: 36415; 80047; 85025

== ENCOUNTER 2024-10-28 14:35 | Outpatient (CLI) | payer MEDICARE, SELFPAY ==
[2024-10-28 14:46] LABS: Basophils Absolute Auto 0.1 K/mm3 (0.0-0.1); Basophils Percent Auto 0.6 % (0.2-1.2); Eosinophils Absolute Auto 0.2 K/mm3 (0-0.3); Eosinophils Percent Auto 1.8 % (0-4.4); Hematocrit 44.5 % (42.0-52.0); Hemoglobin 14.9 g/dL (14.0-18.0); Immature Granulocyte Absolute 0.05 K/mm3 (0.00-0.031); Immature Granulocyte Percent A 0.4 % (0-0.5); Lymphocytes Absolute Auto 5.26 K/mm3 (0.9-3.2); Lymphocytes Percent Auto 39.8 % (18.3-44.2); Mean Corpuscular HGB Conc 33.5 g/dl (32-36); Mean Corpuscular Hemoglobin 33.8 pg (26-34); Mean Corpuscular Volume 100.9 fl (80-100); Mean Platelet Volume 11.5 fl (7.4-10.4); Monocytes Absolute Auto 0.9 K/mm3 (0.1-0.6); Monocytes Percent Auto 6.6 % (2.6-8.5); Neutrophils Absolute Auto 6.7 K/mm3 (1.3-6.7); Neutrophils Percent Auto 50.8 % (45.5-73.1); Platelet Count Result 477 k/mm3 (150-375); Red Blood Count 4.41 M/mm3 (4.6-6.20); Red Cell Distribution Width 13.7 % (11.5-14.5); White Blood Count 13.2 K/mm3 (4.5-10.0)
--- OUTSIDE RECORDS SUMMARY | 2024-10-28 15:43 | XMS_ITS | Clinical Summary ---
Author Organization [facility] Address [address] [place] [address] Phone Care Team Providers Care Plant Safety Leader Name Role Phone Provider, None Primary Care Provider Unavailabl e Allergies Active Allergy Reactions Criticality Noted Date Comments Penicillins Rash 01/03/2023 Medications finasteride (PROSCAR) 5 MG Tablet Take 5 mg by mouth daily. Active tamsulosin (FLOMAX) 0.4 MG Capsule Take 0.4 mg by mouth daily. Active losartan (COZAAR) 25 MG Tablet Take 25 mg by mouth daily. Active hydroxyurea (HYDREA) 500 MG CapsuleIndicati ons:Polycythemi a Vera Take by mouth daily Indications: Polycythemia Vera Active Family History Medical History Relation Name Comments Cancer Father Emphysema Father Heart Attack Father Heart Disease Father No Known Problems Mother Relation Name Status Comments Father Mother Social History Tobacco Use Types Packs/Day Years Used Date Smoking Tobacco: Never Smokeless Tobacco: Never Tobacco Cessation:Counseling Given: Not Answered Alcohol Use Standard Drinks/Week Comments Yes 4 (1 standard drink = 0.6 oz pur e alcohol) Sex and Gender Information Value Date Recorded Sex Assigned at Not on file Legal Sex Male 10:46 AM CDT Gender Identity Not on file Sexual Orientation Not on file Last Filed Vital Signs Vital Sign Reading Time Taken Comments Blood Pressure 125/66 01/08/2023 10:01 AM CDT Pulse 63 01/08/2023 10:01 AM CDT Temperature 37.4 C (99.3 F) 01/08/2023 10:01 AM CDT Respiratory Rate 16 01/08/2023 10:01 AM CDT Oxygen Saturation 96% 01/08/2023 10:01 AM CDT Inhaled Oxygen Concentration - - Weight 86.2 kg (190 lb) 01/03/2023 9:00 AM CDT Height 182.9 cm (6') 01/03/2023 9:00 AM CDT Body Mass Index 25.77 01/03/2023 9:00 AM CDT Plan of Treatment Health Maintenance Due Date Last Done Comments Hepatitis C Virus (HCV) Screening 1950 Zoster Immunization (1 of 2) 1969 Colonoscopy 12/29/1995 Colorectal Cancer Screening 12/29/1995 Cologuard 2000 Immunochemical Fecal Occult Blood 2000 Pneumococcal Immunization (50+ years) (1 of 1 - PCV) 2000 Respiratory Syncytial Virus (RSV) Immunization (Adult) (1 - Risk 60-74 years 1-dose series) 2010 Hepatitis B Immunization (3 of 3 - Hep B Twinrix 3-dose series) 05/26/2018 12/24/2017, 11/21/2017 Influenza Immunization (#1) 2024 05/08/2022 SARS-COV-2 Immunization ( season) 2024 11/16/2022, 06/22/2022, 02/08/2022, Additional history exists DTaP/Tdap/Td Immunization Discontinued 01/10/2022 TdaP Immunization Completed 01/10/2022 Meningococcal Immunization (ACWY) Aged Out No longer eligible based on patient's age to complete this topic Rotavirus Immunization Aged Out No lo nger eligible based on patient's age to complete this topic Medical Devices Implanted Type Area Protective Service Specialist Device Identifier Shelf Expiration Date Model / Serial / Lot Right Intraocular Lens Implanted:Qty: 1 on 01/08/2023 by Norbert Avilez MD at [facility] Right: Eye [employer] 11/05/2024 DCB00 / [id number] / [id number] Insurance MEDICARE C AETNA Care Teams Plant Safety Leader Relationship Specialty Start Date End Date Provider, None [place] PCP - General 01/05/23
--- OUTSIDE RECORDS SUMMARY | 2024-10-28 15:43 | XMS_ITS | Clinical Summary ---
Author Organization [facility] Address [address] [place] [address] Care Team Providers Care Miller Distillery Name Role Phone Amarilys Perez MD Primary Care Provider Allergies Active Allergy Reactions Criticality Noted Date Comments Penicillins Rash Medium 12/13/2021 Medications tamsulosin (FLOMAX) 0.4 mg capsule Take 0.4 mg by mouth daily. 2 Active losartan (COZAAR) 25 mg tablet Take 25 mg by mouth daily. 2 Active finasteride (PROSCAR) 5 mg tablet Take 5 mg by mouth daily. 3 Active apixaban (Eliquis) 5 mg tablet Take 5 mg by mouth 2 times daily. Active ergocalciferol (VITAMIN D2) 50,000 unit capsule Take 1 Capsule by mouth every 7 days. 4 Active hydroxyurea (HYDREA) 500 mg capsuleIndications:E ssential thrombocythemia (CMS/HCC),Leukocytos is, unspecified type Take 1 Capsule Sunday thru Sunday every week. 66 Capsule 3 4 Active Active Problems Problem Noted Date Diagnosed Date Essential thrombocythemia 12/30/2021 Leukocytosis (leucocytosis) 12/13/2021 Resolved Problems Problem Noted Date Diagnosed Date Resolved Date Reactive thrombocytosis 12/13/202112/14 Encounters Date Type Department Care Team Description 10/21/2024 External Device Data STL ABSTRACTION Provider, Abstract 10/07/2024 Orders Only [facility] - [place] [address] [place] [address] Heber Mak MD Essential thrombocythemia (CMS/HCC) (Primary Dx) 10/01/2024 External Device Data STL ABSTRACTION Provider, Abstract 09/22/2024 External Device Data STL ABSTRACTION Provider, Abstract 09/09/2024 External Device Data STL ABSTRACTION Provider, Abstract 08/12/2024 External Device Data STL ABSTRACTION Provider, Abstract 08/06/2024 External Device Data ST[place] ABSTRACTION Provider, Abstract 08/06/2024 External Device Data ST[facility] ABSTRACTION Provider, Abstract 07/30/2024 External Device Data STL ABSTRACTION Provider, Abstract from Last 3 Months Immunizations Immunization Administration Dates Next Due INFLUENZA VACCINE HIGH DOSE QUADRIVALENT 65 YR U P PF IM 05/08/2022 Family History Relation Name Status Comments Daughter 1 Alive Daughter 2 Alive Father Mother Sister Alive Social History Tobacco Use Types Packs/Day Years Used Date Smoking Tobacco: Never Smokeless Tobacco: Never Tobacco Cessation:Counseling Given: Not Answered Alcohol Use Standard Drinks/Week Comments Yes 0 (1 standard drink = 0.6 oz pur e alcohol) occasional Sex and Gender Information Value Date Recorded Sex Assigned at Not on file Legal Sex Male 1:19 PM CDT Gender Identity Not on file Sexual Orientation Not on file Last Filed Vital Signs Vital Sign Reading Time Taken Comments Blood Pressure 142/84 06/06/2024 9:56 AM WOODWORK SALVAGE INSPECTOR Pulse 59 06/06/2024 9:52 AM WOODWORK SALVAGE INSPECTOR Temperature 36.6 C (97.8 F) 06/06/2024 9:52 AM WOODWORK SALVAGE INSPECTOR Respiratory Rate 14 06/06/2024 9:52 AM WOODWORK SALVAGE INSPECTOR Oxygen Saturation 97% 06/06/2024 9:52 AM WOODWORK SALVAGE INSPECTOR Inhaled Oxygen Concentration - - Weight 87.1 kg (192 lb) 06/06/2024 9:52 AM WOODWORK SALVAGE INSPECTOR Height 182.9 cm (6') 12/30/2021 10:40 AM CDT Body Mass Index 26.04 12/30/2021 10:40 AM CDT Plan of Treatment Upcoming Encounters Date Type Department Care Team (Late st Contact Info) Description 10/29/2024 1:00 PM CDT Office Visit [facility] - [place] [address] [facility] [address] [place] [address] Heber Mak MD [address] [facility] [address] [place] [id number] Health Maintenance Due Date Last Done Comments DTAP/TDAP/TD VACCINES (1 - Tdap) 1969 COLORECTAL SCREENING 12/29/1995 Colorectal Cancer Screening 12/29/1995 FIT-DNA Q 3 years 12/29/1995 FIT/FOBT Q 1 year 12/29/1995 Flex Sig/CT Colonography Q 5 years 12/29/1995 PNEUMOCOCCAL VACCINE 50+ YEARS (1 of 1 - PCV) 12/29/19 ZOSTER VACCINE (1 of 2) 2000 INFLUENZA VACCINE (#1) 2024 05/08/2022 [place] Prev entative Visit/Annual Wellness Visit 07/16/2024 RSV VACCINE (60+ or ) (1 - 1-dose 75+ series) 2025 Insurance AETNA [facility] Medicare Part B Care Teams Miller Distillery Relationship Specialty Start Date End Date Amarilys Perez MD [address] [place] [id number] PCP - General Family Practice 12/22/22
[2024-10-28 16:36] LABS: Anion Gap 10 mmol/L (4-12); Blood Urea Nitrogen 23 mg/dL (9-20); Calcium 9.5 mg/dL (8.4-10.2); Carbon Dioxide 26 mmol/L (22-30); Chloride 102 mmol/L (98-107); Estimated Glomerular Filt Rate > 60; Glucose 107 mg/dL (65-110); Potassium 3.7 mmol/L (3.4-5.0); Sodium 138 mmol/L (137-145)
== END 2024-10-28 14:36 | disposition home or self-care (01) ==
LOC: ANHLAB 14:36
PROVIDERS: PCP Family Medicine; Visit Provider Internal Medicine Hematology & Oncology
DX: D47.3 Essential (hemorrhagic) thrombocythemia (principal)
CPT/HCPCS: 36415; 80048; 85025

== ENCOUNTER 2024-10-29 13:39 | Outpatient (CLI) | payer MEDICARE, SELFPAY ==
--- OUTSIDE RECORDS SUMMARY | 2024-10-29 14:49 | XMS_ITS | Clinical Summary ---
Author Organization [facility] Address [address] [place] [address] Care Team Providers Care Crystallizer Operator Name Role Phone Amarilys Perez MD Primary [...] Encounters Date Type Department Care Team Description 10/29/2024 1:00 PM CDT Office Visit [facility] - [place] [address] [place] [address] Heber Mak MD Leukocytosis, unspecified type (Primary Dx) 10/29/2024 Orders Only [facility] [place] [address] [place] [address] Heber Mak MD 10/28/2024 External Device Data STL ABSTRACTION Provider, Abstract 10/21/2024 External Device Data STL ABSTRACTION Provider, Abstract 10/07/2024 Orders Only [facility] [place] [address] [place] [address] Heber Mak MD Essential thrombocythemia (CMS/HCC) (Primary [...] Sign Reading Time Taken Comments Blood Pressure 120/72 10/29/2024 1:03 PM CDT Pulse 76 10/29/2024 1:03 PM CDT Temperature 36.4 C (97.5 F) 10/29/2024 1:03 PM CDT Respiratory Rate 15 10/29/2024 1:03 PM CDT Oxygen Saturation 97% 10/29/2024 1:03 PM CDT Inhaled Oxygen Concentration - - Weight 85.5 kg (188 lb 8 oz) 10/29/2024 1:03 PM CDT Height 182.9 cm (6') 12/30/2021 10:40 AM CDT Body Mass Index 25.57 12/30/2021 10:40 AM CDT Plan of Treatment Upcoming Encounters Date Type Department Care Team (Late st Contact Info) Description 11/13/2024 4:30 PM CDT Telephone Check Up [facility] - [place] [address] [facility] [address] [place] [address] Heber Mak MD [address] [facility] [address] [place] [address] Health Maintenance Due Date Last Done Comments COLORECTAL SCREENING 12/29/1995 Colorectal Cancer Screening 12/29/1995 FIT-DNA Q 3 years 12/29/1995 FIT/FOBT Q 1 year 12/29/1995 Flex Sig/CT Colonography Q 5 years 12/29/1995 PNEUMOCOCCAL VACCINE 50+ YEARS (1 of 1 - PCV) 12/29/19 ZOSTER VACCINE (1 of 2) 2000 DTAP/TDAP/TD VACCINES (1 - Tdap) 12/26/2005 12/26/19 06 INFLUENZA VACCINE (#1) 2024 05/08/2022 [place] Prev entative Visit/Annual Wellness Visit 07/16/2024 RSV VACCINE (60+ or ) (1 - 1-dose 75+ series) 2025 Procedures Procedure Name Priority Date/Time Associated Diagnosis Comments BASIC METABOLIC PANEL Routine 10/28/2024 8:55 AM CDT CBC WITH AUTODIFFERENTIAL Routine 2024 8:51 AM CDT from Last 3 Months Results * BASIC METABOLIC PANEL (10/28/2024 8:55 AM CDT) Blood Heber Mak MD CHEMISTRY ORDERABLES Final Resu lt * CBC WITH AUTODIFFERENTIAL (10/28/2024 8:51 AM CDT) Blood us Heber Mak MD HEMATOLOGY ORDERABLES Final Res ult from Last 3 Months Insurance AETNA PPO [facility] Medicare Part B Care Teams Crystallizer Operator Relationship Specialty Start Date End Date Amarilys Perez MD [address] [place] [address] PCP - General Family Practice 12/22/22
--- OUTSIDE RECORDS SUMMARY | 2024-10-29 14:49 | XMS_ITS | Encounter Summary ---
Author Organization [facility] [employer] Address [address] [place] [address] Care Team Providers Care Automotive Consultant Name Role Phone Amarilys Perez MD Primary Care Provider Encounter Details Date Type Department Care Team (Late Contact Info) Description 10/29/2024 Orders Only [facility] Oncology and Hematology [facility] [address] [place] [address] Heber Mak MD [facility] [employer] [address] [place] [phone] Social History Tobacco Use Types Packs/Day Years Used Date Smoking Tobacco: Never Smokeless Tobacco: Never Alcohol Use Standard Drinks/Week Comments Yes 0 (1 standard drink = 0.6 oz pur e alcohol) occasional Sex and Gender Information Value Date Recorded Sex Assigned at Not on file Legal Sex Male 1:19 PM CDT Gender Identity Not on file Sexual Orientation Not on file documented as of this encounter Plan of Treatment Upcoming Encounters Date Type Department Care Team (Late st Contact Info) Description 11/13/2024 4:30 PM CDT Telephone Check Up [facility] Oncology and Hematology [facility] [address] [place] [address] Heber Mak MD [facility] [address] [place] [phone] documented as of this encounter Procedures Procedure Name Priority Date/Time Associated Diagnosis Comments BASIC METABOLIC PANEL Routine 10/28/2024 8:55 AM CDT CBC WITH AUTODIFFERENTIAL Routine 2024 8:51 AM CDT documented in this encounter Results * BASIC METABOLIC PANEL (10/28/2024 8:55 AM CDT) Blood us Heber Mak MD CHEMISTRY ORDERABLES Final Resu lt * CBC WITH AUTODIFFERENTIAL (10/28/2024 8:51 AM CDT) Blood us Heber Mak MD HEMATOLOGY ORDERABLES Final Res ult documented in this encounter Visit Diagnoses Not on filedocumented in this encounter Care Teams Automotive Consultant Relationship Specialty Start Date End Date Amarilys Perez MD [address] [place] [address] PCP - General Family Practice 12/22/22 documented as of this encounter
--- OUTSIDE RECORDS SUMMARY | 2024-10-29 14:49 | XMS_ITS | Encounter Summary ---
Author Organization [facility] Address [address] [place] [address] Care Team Providers Care Principal Network Architect Name Role Phone Amarilys Perez MD Primary Care Provider Encounter Details Date Type Department Care Team (Late st Contact Info) Description 10/28/2024 External Device Data [place] ABSTRACTION Provider, Abstract NO ADDRESS ON FILE Social History Tobacco Use Types Packs/Day Years [...] 11/13/2024 4:30 PM CDT Telephone Check Up [facility] Oncology and Hematology - [place] [address] [facility] [address] [place] [address] Heber Mak MD [address] [facility] [address] [place] [address] documented as of this encounter Visit Diagnoses Not on filedocumented in this encounter Care Teams Principal Network Architect Relationship Specialty Start Date End Date Amarilys Perez MD [address] [place] [address] PCP - General Family Practice 12/22/22 documented as of this encounter
--- OUTSIDE RECORDS SUMMARY | 2024-10-29 14:49 | XMS_ITS | Clinical Summary ---
Author Organization [facility] Address [address] [place] [address] Phone Care Team Providers Care Bilingual Administrative Assistant Name Role Phone Provider, None Primary Care [...] this topic Medical Devices Implanted Type Area Colloid Mill Operator Device Identifier Shelf Expiration Date Model / Serial / Lot Right Intraocular Lens Implanted:Qty: 1 on 01/08/2023 by Norbert Avilez MD at [facility] Right: Eye [employer] 11/05/2024 DCB00 / DCB00 / [id number] Insurance MEDICARE C [employer]ET[employer] Care Teams Bilingual Administrative Assistant Relationship Specialty Start Date End Date Provider, None [place] PCP - General 01/05/23
--- OUTSIDE RECORDS SUMMARY | 2024-10-29 14:49 | XMS_ITS | Encounter Summary ---
Author Organization [facility] [employer] [facility] Address [address] [place] [address] Care Team Providers Care Nursery Helper Name Role Phone Amarilys Perez MD Primary Care Provider Reason for Visit * Reason Comments Follow Up Encounter Details Date Type Department Care Team (Late st Contact Info) Description 10/29/2024 1:00 PM CDT Office Visit [facility] Oncology and Hematology - [place] [address] [facility] [address] [place] [address] Heber Mak MD [address] [facility] [address] [place] [address] Leukocytosis, unspecified type (Primary Dx) Social History Tobacco Use Types Packs/Day Years [...] on file documented as of this encounter Last Filed Vital Signs Vital Sign Reading Time Taken Comments Blood Pressure 120/72 10/29/2024 1:03 PM CDT Pulse 76 10/29/2024 1:03 PM CDT Temperature 36.4 C (97.5 F) 10/29/2024 1:03 PM CDT Respiratory Rate 15 10/29/2024 1:03 PM CDT Oxygen Saturation 97% 10/29/2024 1:03 PM CDT Inhaled Oxygen Concentration - - Weight 85.5 kg (188 lb 8 oz) 10/29/2024 1:03 PM CDT Height - - Body Mass Index 25.57 12/30/2021 10:40 AM CDT documented in this encounter Progress Notes * Heber Mak MD - 10/29/2024 1:07 PM CDT HEMATOLOGY / ONCOLOGY PROGRESS NOTE Patient Identification: Name: Jeff Westbrook Age: 73 y.o. Sex: male : 1950 DIAGNOSIS Essential thrombocythemia with JAK2 mutation positive diagnosed December 13, 2021 CURRENT TREATMENT Hydroxyurea 500 mg daily started February 2022. Eliquis 5 mg twice daily TREATMENT HISTORY Baby aspirin was discontinued due to previous hematuria. Eliquis started January 30, 2023 due to diagnosis of right lower extremity DVT. SUBJECTIVE Patient came to the office for follow-up visit. He is taking hydroxyurea and tolerating it well. Denies any night sweats fevers and chills. Weight and appetite stable. No other new complaints. Review of system Constitutional: Patient did not mention fevers, sweats, weight and appetite stable, denies any tiredness and fatigue HEENT: Patient did not mention sinus congestion, hearing or vision problems Respiratory: Patient did not mention cough, dyspnea, wheeze Cardiovascular: Patient did not mention chest pain, exertional chest pressure/discomfort, nausea, syncope, shortness of breath GI: Patient did not mention constipation, diarrhea, dsyphagia, reflux symptoms, vomiting, melena : Patient did not mention dysuria, frequency, incontinence, urgency Integumentary system: no lymphadenopathy, sweats, flushing Musculoskeletal: Patient not mention: myalgia, arthralgia Neurological: Patient did not mention blurry or disturbed vision, numbness/weakness, dizziness Skin: No lumps, bumps or rashes. 12 point review of system was reviewed Objective: Vital signs in last 24 hours: As per nursing note Exam: General appearance: alert, cooperative, no distress, appears stated age Head: normocephalic, without obvious abnormality, atraumatic Eyes: conjunctivae/corneas clear, EOM's intact Ears: normal external ear canals AU Nose: Nares normal. Septum midline. Mucosa normal. No drainage or sinus tenderness Throat: Lips, mucosa, and tongue normal. Teeth and gums normal Neck: supple, symmetrical, trachea midline. Lungs: clear to auscultation bilaterally Heart: regular rate and rhythm, S1, S2 normal, no murmur, click, rub or gallop Abdomen: soft, non-tender. Bowel sounds normal. No masses, No organomegaly Extremities: extremities normal, atraumatic, no cyanosis or edema Skin: Skin color, texture, turgor normal. No rashes or lesions Lymph nodes: There is no palpable lymphadenopathy Neuro: No obvious focal deficit Exam as above PATH LABS Labs from December 13, 2021 showed creatinine 0.8 C-reactive protein less than 0.5 total bilirubin 0.4 WBC 11.9 hemoglobin 14.9 platelet 527,000 neutrophils 52% JAK2 rotation negative BCR ABL translocation not detected Labs from May show WBC 9.2 hemoglobin 14.5 platelet 389,000 creatinine 0.8. Labs from August 14 showed WBC 8.6 hemoglobin 14.3 platelet 350,000 creatinine 0.8 Labs from December 18 showed WBC 7.7 hemoglobin 14.4 platelet 295,000 creatinine 0.9 Labs from March 12 showed WBC 8.5 hemoglobin 14.2 platelet 330,000 Labs from June 19 show WBC 10.5 hemoglobin 14.7 platelet 413,000 creatinine 1.4 Labs from September 20 showed hemoglobin 15.2 platelet 396,000 Labs from February 03 showed creatinine 1.2 WBC 12.8 hemoglobin 14.4 platelet 442,000 Labs from June 06 showed WBC 13.8 hemoglobin 14.8 platelet 447,000 creatinine 1.6 Labs from October 28 showed WBC 13.2 hemoglobin 14.9 platelet 477,000 neutrophil 50% lymphocyte 39% creatinine 0.9 Assessment: Plan: Patient Active Problem List Diagnosis Date Noted Essential thrombocythemia (CMS/HCC) 12/30/2021 Leukocytosis (leucocytosis) 12/13/2021 Essential thrombocythemia with JAK2 mutation positive. Patient started hydroxyurea in February 2022. Patient has history of TIA diagnosed in March 2023 and aspirin was started. Labs noted and stable platelet count. He will continue hydroxyurea 500 mg 5 days a week that he hasbeen tolerating well. Patient is going to move to [place] in end of November. I will see him back if hestill in the town in 6 months. Leukocytosis. Will order flow cytometric analysis for leukemia and phone visit in 2 weeks. There isno lymphadenopathy on my exam. Provoked right lower extremity DVT after the long drive. Patient will continue Eliquis for long-term duration. BPH. Stable on Flomax. 10/29/2024 Heber Mak MD documented in this encounter Plan of Treatment Upcoming Encounters Date Type Department Care Team (Late st Contact Info) Description 11/13/2024 4:30 PM CDT Telephone Check Up [facility] Oncology and Hematology - [place] [address] [facility] [address] [place] [address] Heber Mak MD [address] [facility] [address] [place] [address] Scheduled Orders Name Type Priority Associated Diagnoses Orde r Schedule FLOW CYTOMETRY PANEL Lab Routine Leukocytosis, unspecified type Expected: 10/29/2024, Expires: 10/29/2025 documented as of this encounter Visit Diagnoses Diagnosis Leukocytosis, unspecified type- Primary documented in this encounter Care Teams Nursery Helper Relationship Specialty Start Date End Date Amarilys Perez MD [address] [place] [id number] PCP - General Family Practice 12/22/22 documented as of this encounter
== END 2024-10-29 13:40 | disposition home or self-care (01) ==
LOC: ANHLAB 13:40
PROVIDERS: PCP Family Medicine; Visit Provider Internal Medicine Hematology & Oncology
DX: D72.829 Elevated white blood cell count, unspecified (principal)
CPT/HCPCS: 88184

== ENCOUNTER 2025-06-16 15:09 | Outpatient (CLI) | payer MEDICARE, SELFPAY ==
[2025-06-16 15:25] LABS: Hematocrit 44.4 % (42.0-52.0); Hemoglobin 14.7 g/dL (14.0-18.0); Immature Granulocyte Percent A 0.7 % (0-0.5); Lymphocytes Absolute Auto 4.89 K/mm3 (0.9-3.2); Mean Corpuscular HGB Conc 33.1 g/dl (32-36); Mean Corpuscular Hemoglobin 33.2 pg (26-34); Mean Corpuscular Volume 100.2 fl (80-100); Nucleated Red Blood Cells Absolute Auto 0.000 K/mm3 (0.0-0.012); Nucleated Red Blood Cells Perc 0.0 % (0.0-0.2); Platelet Count Result 487 k/mm3 (150-375); Red Blood Count 4.43 M/mm3 (4.6-6.20); White Blood Count 13.1 K/mm3 (4.5-10.0)
[2025-06-16 15:28] LABS: Blood Urea Nitrogen 20 mg/dL (8-26); Carbon Dioxide 25 mmol/L (22-30); Chloride 106 mmol/L (98-109); Estimated Glomerular Filt Rate 40; Glucose 106 mg/dL (70-105); Ionized Calcium (POC) 1.21 mmol/L (1.11-1.31); Potassium 4.0 mmol/L (3.5-4.9); Sodium 142 mmol/L (138-146)
--- OUTSIDE RECORDS SUMMARY | 2025-06-16 15:45 | XMS_ITS | Encounter Summary ---
Author Organization [facility] [employer] [facility] Address [address] [place] [address] Care Team Providers Care Account Development Specialist Name Role Phone Amarilys Perez MD Primary Care Provider Encounter Details Date Type Department Care Team (Late st Contact Info) Description 06/16/2025 3:45 PM HEAD OF PARTNER DEVELOPMENT Office Visit [facility] Oncology and Hematology - [place] [address] [facility] [address] [place] [address] Heber Mak MD [address] [facility] [address] [place] [address] Social History Tobacco Use Types Packs/Day [...] Sign Reading Time Taken Comments Blood Pressure 138/85 06/16/2025 3:40 PM HEAD OF PARTNER DEVELOPMENT Pulse 67 06/16/2025 3:40 PM HEAD OF PARTNER DEVELOPMENT Temperature 36.8 C (98.2 F) 06/16/2025 3:40 PM HEAD OF PARTNER DEVELOPMENT Respiratory Rate 15 06/16/2025 3:40 PM HEAD OF PARTNER DEVELOPMENT Oxygen Saturation 97% 06/16/2025 3:40 PM HEAD OF PARTNER DEVELOPMENT Inhaled Oxygen Concentration - - Weight 87.4 kg (192 lb 9.6 oz) 06/16/2025 3:40 P M HEAD OF PARTNER DEVELOPMENT Height - - Body Mass Index 26.12 12/30/2021 10:40 AM CDT documented in this encounter Plan of Treatment Not on file documented as of this encounter Visit Diagnoses Not on filedocumented in this encounter Care Teams Account Development Specialist Relationship Specialty Start Date End Date Amarilys Perez MD [address] [place] [id number] PCP - General Family Practice 12/22/22 documented as of this encounter
--- OUTSIDE RECORDS SUMMARY | 2025-06-16 16:29 | XMS_ITS | Clinical Summary ---
Author Organization [facility] Address [address] [place] [address] Care Team Providers Care Director Of Sports Medicine Name Role Phone Amarilys Perez MD Primary Care Provider Allergies Active Allergy Reactions Criticality Noted Date Comments Penicillins Rash Medium 12/13/2021 Medications tamsulosin (FLOMAX) 0.4 mg capsule Take 0.4 mg by mouth daily. 12/10/19 22 Active losartan (COZAAR) 25 mg tablet Take 25 mg by mouth daily. 10/26/19 22 Active finasteride (PROSCAR) 5 mg tablet Take 5 mg by mouth daily. 08/10/19 23 Active apixaban (Eliquis) 5 mg tablet Take 5 mg by mouth 2 times daily. Active ergocalciferol (VITAMIN D2) 50,000 unit capsule Take 1 Capsule by mouth every 7 days. 09/24/19 24 Active hydroxyurea (HYDREA) 500 mg capsule Take 1 Capsule Sunday thru Sunday every week. 21 Capsule 05/29/20 25 Active hydroxyurea (HYDREA) 500 mg capsuleIndications: Essential thrombocythemia (CMS/HCC),Leukocyto sis, unspecified type Take 1 Capsule Sunday thru Sunday every week. 66 Capsule 02/19/20 25 025 Discontinu ed(Alterna te therapy prescribed ) Active Problems Problem Noted Date Diagnosed Date Essential thrombocythemia 12/30/2021 Leukocytosis (leucocytosis) 12/13/2021 Resolved Problems Problem Noted Date Diagnosed Date Resolved Date Reactive thrombocytosis 12/13/202112/14 Encounters Date Type Department Care Team Description 06/16/2025 3:45 PM AUTOMATION TECHNOLOGIST Office Visit [facility] Oncology and Hematology - [place] [address] [place] [address] Heber Mak MD 05/29/2025 Orders Only [facility] Oncology and Hematology [facility] [address] [place] [address] Heber Mak MD Essential thrombocythemia (CMS/HCC) (Primary Dx) 05/29/2025 Refill [facility] Oncology and Hematology [facility] [address] [place] [address] Heber Mak MD Essential thrombocythemia (CMS/HCC); Leukocytosis, unspecified type 05/12/2025 Refill [facility] Oncology and Hematology [facility] [address] [place] [address] Heber Mak MD Essential thrombocythemia ([facility]/HCC); Leukocytosis, unspecified type 03/31/2025 External Device Data STL ABSTRACTION Provider, Abstract [...] Comments Blood Pressure 138/85 06/16/2025 3:40 PM AUTOMATION TECHNOLOGIST Pulse 67 06/16/2025 3:40 PM AUTOMATION TECHNOLOGIST Temperature 36.8 C (98.2 F) 06/16/2025 3:40 PM AUTOMATION TECHNOLOGIST Respiratory Rate 15 06/16/2025 3:40 PM AUTOMATION TECHNOLOGIST Oxygen Saturation 97% 06/16/2025 3:40 PM AUTOMATION TECHNOLOGIST Inhaled Oxygen Concentration - - Weight 87.4 kg (192 lb 9.6 oz) 06/16/2025 3:40 P M AUTOMATION TECHNOLOGIST Height 182.9 cm (6') 12/30/2021 10:40 AM CDT Body Mass Index 26.12 12/30/2021 10:40 AM CDT Plan of Treatment Health Maintenance Due Date Last Done Comments COLORECTAL SCREENING 12/29/1995 Colorectal Cancer Screening 12/29/1995 FIT-DNA Q 3 years 12/29/1995 FIT/FOBT Q 1 year 12/29/1995 Flex Sig/CT Colonography Q 5 years 12/29/1995 PNEUMOCOCCAL VACCINE 50+ YEARS (1 of 1 - PCV) 12/29/19 ZOSTER VACCINE (1 of 2) 2000 DTAP/TDAP/TD VACCINES (1 - Tdap) 12/26/2005 12/26/19 Medicare Advantage ([place]) Prev entative Visit/Annual Wellness Visit 07/16/2024 INFLUENZA VACCINE (#1) 2025 05/08/2022 RSV VACCINE (60+ or ) (1 - 1-dose 75+ series) 2025 Insurance AETNA PPO MCR RX [facility] DATA Medicare Part B Care Teams Director Of Sports Medicine Relationship Specialty Start Date End Date Amarilys Perez MD [address] [place] [address] PCP - General Family Practice 12/22/22
--- OUTSIDE RECORDS SUMMARY | 2025-06-16 16:29 | XMS_ITS | Clinical Summary ---
Author Organization [facility] Address [address] [place] [address] Phone Care Team Providers Care Steward/Stewardess Deck Name Role Phone Provider, None Primary Care [...] 1950 Zoster Immunization (1 of 2) 1969 Cologuard 12/29/1995 Colonoscopy 12/29/1995 Colorectal Cancer Screening 12/29/1995 Immunochemical Fecal Occult Blood 12/29/1995 Pneumococcal Immunization (50+ years) (1 of 1 - PCV) 2000 Respiratory Syncytial Virus (RSV) Immunization (Adult) (1 - Risk 50-74 years 1-dose series) 2000 Hepatitis B Immunization (3 of 3 - Hep B Twinrix 3-dose series) 05/26/2018 12/24/2017, 11/21/2017 Medicare Initial AWV [id number] 12/15/2023 Influenza Immunization (#1) 2025 05/08/2022 SARS-COV-2 Immunization ( season) 2025 11/16/2022, 06/22/2022, 02/08/2022, Additional history exists DTaP/Tdap/Td Immunization Discontinued 01/10/2022 TdaP Immunization Completed 01/10/2022 Human Papillomavirus (HPV) Immunization Aged Out No longer eligible based on patient's age to complete this topic Meningococcal Immunization (ACWY) Aged Out No longer eligible based on patient's age to complete this topic Rotavirus Immunization Aged Out No lo nger eligible based on patient's age to complete this topic Medical Devices Implanted Type Area Assistant Dean Of Students Device Identifier Shelf Expiration Date Model / Serial / Lot Right Intraocular Lens Implanted:Qty: 1 on 01/08/2023 by Norbert Avilez MD at [facility] Right: Eye [employer] 11/05/2024 DCB00 / DCB00 / [id number] Insurance MEDICARE C AETNA Care Teams Steward/Stewardess Deck Relationship Specialty Start Date End Date Provider, None [place] PCP - General 01/05/23
== END 2025-06-16 15:10 | disposition home or self-care (01) ==
LOC: ANHLAB 15:12
PROVIDERS: Visit Provider Internal Medicine Hematology & Oncology
DX: D47.3 Essential (hemorrhagic) thrombocythemia (principal)
CPT/HCPCS: 36415; 80047; 85025